=== PATIENT | male | born 1955 | race Two or more races ===

== ENCOUNTER 2016-10-23 07:16 | Day surgery (SDC) | payer BC ==
[2016-10-23] MEDS ORDERED: IV START KIT ONE (07:18)
[2016-10-23] MEDS ORDERED: CEFAZOLIN SODIUM 2 GRAM PREMIX 100 ML IV ONE (07:19)
[2016-10-23] MEDS ORDERED: SODIUM CHLORIDE 0.9% 1,000 ML ONE (07:19)
[2016-10-23] MEDS ORDERED: CEFAZOLIN SODIUM 2 GRAM PREMIX 100 ML IV PRN (07:30)
[2016-10-23] MEDS ORDERED: MIDAZOLAM HCL 5 MG/5 ML VIAL ONE (07:46)
[2016-10-23] MEDS ORDERED: FENTANYL 5 ML ONE (07:46)
[2016-10-23] MEDS ORDERED: SPINAL PROCEDURAL TRAY 1 EACH ONE (07:49)
[2016-10-23] MEDS ORDERED: OPIUM/BELLADONNA ALKALOIDS 1 EACH SUP PR ONE (08:18)
[2016-10-23] MEDS ORDERED: PROPOFOL 20 ML IV ONE ×2 (08:20→09:15)
[2016-10-23] MEDS ORDERED: WATER FOR INJECTION,STERILE 20 ML ONE (08:30)
[2016-10-23] MEDS ORDERED: NALOXONE HCL 0.4 MG/ML VIAL IV PRN (09:01)
[2016-10-23] MEDS ORDERED: PROMETHAZINE HCL 25 MG/ML VIAL IM PRN (09:01)
[2016-10-23] MEDS ORDERED: MEPERIDINE 25 MG/ML SYRINGE IV PRN (09:01)
[2016-10-23] MEDS ORDERED: ATROPINE SULFATE 0.4 MG/1 ML VIAL IV PRN (09:01)
[2016-10-23] MEDS ORDERED: ONDANSETRON 4 MG/2ML 2 ML VIAL IV PRN ×2 (09:01→10:59)
[2016-10-23] MEDS ORDERED: FENTANYL 100 MCG/2 ML VIAL IV PRN (09:01)
[2016-10-23] MEDS ORDERED: SODIUM CHLORIDE 0.9% 1,000 ML IV SCH (09:15)
[2016-10-23] MEDS ORDERED: HYDROMORPHONE HCL 1 MG/ML SYRINGE ONE (10:36)
[2016-10-23] MEDS: HYDROMORPHONE HCL 1 MG/ML SYRINGE IV PRN ×2 (10:37→10:45)
[2016-10-23] MEDS ORDERED: BISACODYL 10 MG SUP PR PRN (10:59)
[2016-10-23] MEDS ORDERED: BLISTEX LIPSTICK 1 EACH TP PRN (10:59)
[2016-10-23] MEDS ORDERED: OPIUM/BELLADONNA ALKALOIDS 1 EACH SUP PR PRN (10:59)
[2016-10-23] MEDS ORDERED: MENTHOL/CETYLPYRD 1 EACH LOZENGE PO PRN (10:59)
[2016-10-23 11:23] VITALS: BMI 33.8
[2016-10-23] MEDS ORDERED: MORPHINE SULFATE 4 MG/ML SYRINGE IV PRN (11:25)
[2016-10-23] MEDS ORDERED: MORPHINE SULFATE 10 MG/ML SYRINGE IV PRN (11:25)
[2016-10-23] MEDS: SODIUM CHLORIDE 3 L IRRIG BAG 3,000 ML IR PRN ×2 (12:38→19:12)
[2016-10-23] MEDS: LISINOPRIL 5 MG TABLET PO SCH (13:21)
--- NOTE | 2016-10-23 13:38 | OP ---
LORENA MCINTOSH [id number] DATE OF OPERATION: October 23, 2016 SURGEON: Danial Tijerina M.D. CHILD CARE NURSE: None. ANESTHESIA: Spinal. PREOPERATIVE DIAGNOSIS: Advanced bladder outlet obstruction due to prostate enlargement with known micro-focal prostate adenocarcinoma, low-grade. POSTOPERATIVE DIAGNOSES: Advanced bladder outlet obstruction due to prostate enlargement with known micro-focal prostate adenocarcinoma, low-grade. PROCEDURE: TRANSURETHRAL RESECTION OF THE PROSTATE. SPECIMENS: Chips of prostatic tissue. INDICATIONS: A 60-year-old man with a greater than 14 month history of severe lower urinary tract symptoms and urge incontinence. He has a history of elevated PSA and ultrasound guided biopsy of the prostate revealed a 63 cm3 prostate with one tiny focus of Tim's 6/10 adenocarcinoma on the biopsies. He has seen Dr. Macedo at [facility] and [facility] who advised observation of the carcinoma, but recognizes that his persistence of severe lower urinary tract symptoms despite medications warrants intervention. The problem is compounded by large posterior ball valve type anatomy that is compromising the outlet. At this point, the patient has elected surgical intervention understanding that it does not cure prostate carcinoma and that continued observation will be necessary for that condition in the [facility]. FINDINGS: Mild narrowing of the fossa navicularis, urethra normal, membranous urethra intact. Prostatic fossa greater than 5 cm in length and obstructed by lateral lobe as well as marked posterior periurethral lobe enlargement of the prostate with undermining of the bladder neck and distal trigone forming a prominent ball valve. Ureteral orifices are normally disposed tucked down below, and the bladder wall is moderately trabeculated. PROCEDURE: The patient was identified and brought to the operating room where spinal anesthetic was induced. Then he was placed in a dorsal lithotomy position. The genital region was prepared and draped sterilely. The distal urethra was calibrated with Pine sounds up to 30 Polish, and then a 27 Polish resectoscope sheath was introduced with the visual obturator. Findings are as reported above. Using saline as an irrigant and a bipolar loop cautery system, we began resection by taking down the posterior ball valve as it was necessary to do this in order to get some flow. Once this was complete, we resected laterally on the left working upwards over the anterior tissue and then down the right side. Then we continued refining the bladder neck resection and out toward the verumontanum. Chips of tissue were removed with the assistance of an BaseTrace evacuator. Bleeding was controlled with cautery. Toward the end of the resection, we switched over to a button electrode to complete focal coagulation. Once all chips had been removed and the fossa adequately resected, the resectoscope was withdrawn and a 24 Polish Hawkins catheter was passed and left to gravity drainage with 40 mL of water in its ballon. Three-way saline irrigation was established. The estimated blood loss was less than 75 mL. Resection time was approximately 70 minutes. There were no early complications. The patient was taken in stable condition to the post-anesthesia room. cc: Marline Pressley PA-C
[2016-10-23] MEDS: HYDROCODONE/ACETAMINOPHEN 5/325MG TABLET PO PRN ×2 (14:11→17:43)
[2016-10-23] MEDS: PHENAZOPYRIDINE HCL 200 MG TABLET PO SCH ×2 (14:11→20:08)
[2016-10-23] MEDS: MORPHINE SULFATE 2 MG/ML SYRINGE IV PRN ×3 (15:10→19:12)
[2016-10-23] MEDS: DOCUSATE SODIUM 250 MG CAPSULE PO SCH (20:08)
[2016-10-23] MEDS: METFORMIN HCL 1,000 MG TABLET PO SCH (20:08)
[2016-10-23] MEDS ORDERED: POLYETHYLENE GLYCOL 3350 17 G POWD.SUSP PO SCH (21:00)
[2016-10-24] MEDS: HYDROCODONE/ACETAMINOPHEN 5/325MG TABLET PO PRN ×2 (03:18→08:17)
[2016-10-24 08:06] VITALS: BP 119/69
[2016-10-24] MEDS: LISINOPRIL 5 MG TABLET PO SCH (08:17)
[2016-10-24] MEDS: PHENAZOPYRIDINE HCL 200 MG TABLET PO SCH (08:17)
[2016-10-24] MEDS: DOCUSATE SODIUM 250 MG CAPSULE PO SCH (08:17)
[2016-10-24] MEDS: METFORMIN HCL 1,000 MG TABLET PO SCH (08:17)
--- NOTE | 2016-10-25 13:37 | SURGPATH ---
[facility] [address] [place] [id number] Patient Name: LORENA MCINTOSH MR#: [id number] : 1955 Gender: M Specimen #: [id number] Collected: 10/23/2016 Received: 10/24/2016 Reported: 10/25/2016 Submitting Phys: HEIDI LEZAMA Copy To Phys: [facility] Clinical History / Pre-Operative Diagnosis: BLADDER OUTLET OBSTRUCTION DUE TO ENLARGED PROSTATE; KNOWN LOW-GRADE PROSTATE CA ON PREVIOUS BIOPSY Specimen Source / Surgical Procedure Performed: PROSTATE CHIPS Interpretation: TRANSURETHRAL RESECTION, PROSTATE CHIPS: - FIBROGLANDULAR HYPERPLASIA. - NO MALIGNANCY IDENTIFIED (SEE COMMENT). Comment: The history of previously diagnosed low-grade prostate cancer is noted. Despite examination of all of the tissue, no malignancy is identified in the current specimen. Electronically Signed Out Velma Mendoza M.D. Gross Description: The specimen is received in a formalin filled container labeled with the patient's name. An aggregate of rubbery pink-hurtado tissue fragments is 6.5 x 6.0 x 3.5 cm and 33 g. Totally embedded in cassettes A-V. Te Fields Microscopic Description: Sections of the entire specimen are examined. The prostate chips show nodular areas of both glandular and stromal hyperplasia. No malignancy is identified. 1: [id number] N40.1
== END 2016-10-24 13:55 | disposition home or self-care (01) ==
LOC: SDC 07:16 → MS 10:59 → SDC 10-24 13:55
PROVIDERS: ATTEND Urology
PROC: 0VT08ZZ Resection of Prostate, Via Natural or Artificial Opening Endoscopic (ICD-10-PCS; principal; 2016-10-23)
DX: N40.1 Benign prostatic hyperplasia with lower urinary tract symptoms (principal); N13.8 Other obstructive and reflux uropathy; C61 Malignant neoplasm of prostate; E11.9 Type 2 diabetes mellitus without complications; I10 Essential (primary) hypertension; E66.9 Obesity, unspecified; Z68.33 Body mass index [BMI] 33.0-33.9, adult; Z72.0 Tobacco use
CPT/HCPCS: 52601; J1170; A9270 ×11; J3010; J2270 ×3; J2250; J7030; J0690

== ENCOUNTER 2016-12-04 09:38 | Day surgery (SDC) | payer BC ==
[~2016-12-04 09:38] MED LIST: FENTANYL 5 ML ONE; IV START KIT ONE; LACTATED RINGERS 1,000 ML ONE; LIDOCAINE 2% (PRES FREE) 5 ML VIAL ONE; MIDAZOLAM HCL 1 MG/ML 2ML VIAL ONE; PROPOFOL 20 ML IV ONE; ROCURONIUM BROMIDE 10 MG/ML DOSE IV ONE
[2016-12-04] MEDS ORDERED: LIDOCAINE 1% 2 ML VIAL ID PRN (09:53)
[2016-12-04] MEDS ORDERED: CEFAZOLIN SODIUM 2 GRAM PREMIX 2 G in Premix (D5W) 100 ml 1 EACH IV PRN (09:53)
[2016-12-04] MEDS ORDERED: LACTATED RINGERS 1,000 ML IV SCH ×3 (09:53→13:06)
[2016-12-04] MEDS ORDERED: CEFAZOLIN SODIUM 2 GRAM PREMIX 100 ML IV ONE (10:27)
[2016-12-04] MEDS ORDERED: HYDRALAZINE HCL 20 MG/1 ML VIAL IV PRN (11:26)
[2016-12-04] MEDS ORDERED: ATROPINE SULFATE 0.4 MG/1 ML VIAL IV PRN (11:26)
[2016-12-04] MEDS ORDERED: NALOXONE HCL 0.4 MG/ML VIAL IV PRN (11:26)
[2016-12-04] MEDS ORDERED: MEPERIDINE 25 MG/ML SYRINGE IV PRN (11:26)
[2016-12-04] MEDS ORDERED: LABETALOL HCL 5 MG/ML 20ML VIAL IV PRN (11:26)
[2016-12-04] MEDS ORDERED: ONDANSETRON 4 MG/2ML 2 ML VIAL IV PRN ×2 (11:26→13:06)
[2016-12-04] MEDS ORDERED: PROMETHAZINE HCL 25 MG/ML VIAL IM PRN (11:26)
[2016-12-04] MEDS ORDERED: NEOSTIGMINE METHYLSULFATE 1 MG/ML DOSE ONE (12:07)
[2016-12-04] MEDS ORDERED: GLYCOPYRROLATE 0.2 MG/ML 1ML VIAL ONE ×2 (12:08)
[2016-12-04] MEDS ORDERED: FENTANYL 100 MCG/2 ML VIAL ONE (12:42)
[2016-12-04] MEDS ORDERED: HYDROMORPHONE HCL 1 MG/ML SYRINGE ONE ×2 (12:42→13:22)
[2016-12-04] MEDS: FENTANYL 100 MCG/2 ML VIAL IV PRN ×2 (12:43→12:49)
[2016-12-04] MEDS: HYDROMORPHONE HCL 1 MG/ML SYRINGE IV PRN ×2 (12:46→13:02)
[2016-12-04] MEDS ORDERED: OXYCODONE/ACETAMINOPHEN 5/325 MG TABLET PO PRN (13:06)
[2016-12-04] MEDS ORDERED: HYDROMORPHONE HCL 1 MG/ML SYRINGE IV PRN (13:06)
[2016-12-04] MEDS ORDERED: LACTATED RINGERS 1,000 ML ONE (13:32)
[2016-12-04] MEDS ORDERED: OXYCODONE/ACETAMINOPHEN 5/325 MG TABLET ONE (13:39)
--- NOTE | 2016-12-04 17:07 | PCMBPN ---
Brief Post Op Note: Date of Procedure: 12/04/16 Start Time: Preoperative Diagnosis: 1. Left inguinal hernia Postoperative Diagnosis: 1. Same Procedure: Laparoscopic left inguinal hernia repair with mesh Surgeon: Jenny Conway MD Assist:Karla Anesthesia: GETA Findings: see dictaton Condition: stable Complications: none IV Fluids: see anesthesia report Urine Output: see anesthesia report Estimated Blood Loss: 5 mLs Tourniquet Time: N/A Specimens: N/A Implants: 10x15 laparscopic mesh Drains: N/A
--- NOTE | 2016-12-04 18:40 | OP ---
LORENA MCINTOSH [id number] : 1955 DATE OF SERVICE: December 04, 2016 PREOPERATIVE DIAGNOSIS: Left inguinal hernia. POSTOPERATIVE DIAGNOSIS: Left inguinal hernia. PROCEDURE PERFORMED: LAPAROSCOPIC LEFT INGUINAL HERNIA REPAIR WITH MESH. SURGEON: Jenny Conway M.D. SAP BW BI DEVELOPER: Karla . ANESTHESIA: General. FINDINGS: Large left inguinal hernia, indirect. No direct hernia or femoral hernia appreciated. Mesh in good position at the end of the case. TECHNIQUE: The patient was brought back to the operating room and placed under general anesthesia. The lower abdomen and groin were prepped and draped in sterile surgical fashion. Local anesthetic was placed just inferior to the umbilicus and a #15 blade scalpel was used to make bout a 3 cm transverse incision. Electrocautery was used to cut down to the level of the fascia, and the anterior rectus fascia was opened on the left side. The rectus muscle was swept to the side and the spacer port was placed above the posterior rectus sheath. Once that was slid into position, the camera was placed into the port and the balloon was blown up 30 times. It was held in place for about 30 seconds and then the balloon that holds the port into position was blown up and the other spacer balloon was decompressed and removed. The insufflation was set at 15 mmHg. Two additional 5 mm ports were placed under direct visualization in the midline, one suprapubically and one just inferior to the balloon from the port. Once those were in position, Kittners were used to bluntly take down the peritoneum and sweep the tissue down from the left side clearing off the space and making the hernia very visible. Once the hernia sac was visible and the inguinal structures were visible, graspers were taken and used to separate the inguinal contents out. The cord structures were well visualized. The vas was saved and skeletonized. The hernia sac was large but able to be removed successfully. There was a little bit of oozing and bleeding with this. A few blood vessels were taken with the hernia sac. This was cauterized for hemostasis. Once everything was cleared off, the hernia sac was down, the peritoneum was out of the way, and the cord structures were still in good position, a 10 x 15 self fixating laparoscopic mesh was opened and oriented and then placed into the cavity. It was unrolled in position so that it had good overlap over the pubic tubercle, good overlap over the direct and indirect hernia space and femoral space. The peritoneum and herniated contents were kept out from underneath the mesh and it was in good position. Once in good position, the cavity was decompressed. The port sites were removed, and the fascia was closed with #0 Vicryl. The skin incisions were closed with #4-0 Monocryl. SteriStrips were applied, and the patient was awakened and returned to recovery room in stable condition. All needle, instrument and sponge counts were correct at the end of the case.
== END 2016-12-04 16:33 | disposition home or self-care (01) ==
LOC: SDC 09:38
PROVIDERS: ATTEND Surgery
PROC: 0YU64JZ Supplement Left Inguinal Region with Synthetic Substitute, Percutaneous Endoscopic Approach (ICD-10-PCS; principal; 2016-12-04)
DX: K40.90 Unilateral inguinal hernia, without obstruction or gangrene, not specified as recurrent (principal); R73.03 Prediabetes; Z79.84 Long term (current) use of oral hypoglycemic drugs; F17.210 Nicotine dependence, cigarettes, uncomplicated
CPT/HCPCS: 49650; J1170 ×2; J3010 ×2; A9270; J2250; J7120 ×2; J0690